=== PATIENT | female | born 1945 | race Caucasian/White ===

== ENCOUNTER → 2020-12-01 | Outpatient (CLI) | payer MEDICARE, OTHER | LOC: HEART CORB 11-22 14:00 | DX: I48.92 Unspecified atrial flutter (principal); Z95.2 Presence of prosthetic heart valve; I08.3 Combined rheumatic disorders of mitral, aortic and tricuspid valves; I27.20 Pulmonary hypertension, unspecified | CPT/HCPCS: 93306 ==